=== PATIENT | male | born 1945 | race Caucasian/White ===

== ENCOUNTER 2017-12-09 12:24 | Outpatient (CLI) | payer MEDICARE, MEDICAID ==
--- NOTE | 2017-12-09 17:30 | ULT ---
BILATERAL RENAL ULTRASOUND 12/09/17 Ultrasonography of the urinary tract was performed in this patient with chronic kidney disease and hy pertension. Both kidneys appear anatomically normal with no sign of hydronephrosis, cortical thinning, or increas ed cortical echogenicity. There is some mild lobulation of the cortex bilaterally, not an uncommon fi nding. The urinary bladder was decompressed so is not evaluated. IMPRESSION: No significant renal findings. POS: HOME
[2017-12-09 17:49] LABS: Hemoglobin 15.7 g/dL (14.0-18.0)
[2017-12-09 18:03] LABS: Anion Gap 13 mmol/L (10-20); BUN (Urea Nitrogen) 13 mg/dL (8.4-25.7); Calc. Creatinine Clearance 0 mL/min (70-130); Calcium 9.9 mg/dL (7.8-10.44); Carbon Dioxide 28 mmol/L (23-31); Chloride 97 mmol/L (98-107); Creatinine, Urine 78.64 mg/dL (63-166); Estimated GFR-MDRD 69; Glucose 132 mg/dL (80-115); Potassium 3.9 mmol/L (3.5-5.1); Protein, Urine Random Quant Less than 10 mg/dL; Sodium 134 mmol/L (136-145)
== END 2017-12-09 12:25 | disposition home or self-care (01) ==
LOC: BURULT 12:24
PROVIDERS: ATTEND Internal Medicine Nephrology
DX: E55.9 Vitamin D deficiency, unspecified (principal); I12.9 Hypertensive chronic kidney disease with stage 1 through stage 4 chronic kidney disease, or unspecified chronic kidney disease; N18.2 Chronic kidney disease, stage 2 (mild); R60.0 Localized edema
CPT/HCPCS: 36415; 76770; 80048; 82306; 82570; 83970; 84156; 85014; 85018